=== PATIENT | female | born 1980 | race Caucasian/White ===

== ENCOUNTER 2017-09-16 12:05 | Outpatient (CLI) | payer OTHER ==
--- NOTE | 2017-09-16 13:27 | RAD ---
TWO VIEWS CHEST: Date: 09-16-17 Comparison: None. History: Cough. FINDINGS: There are post-surgical clips in the upper abdomen. No pneumothorax, pleural fluid, lobar consolidati on, or alveolar edema. Mild increased density is seen in the medial lung base on the left on the frontal view, with no corre late on the lateral exam, likely on the basis of volume loss. IMPRESSION: Mild increased density in the medial left base noted with no focal consolidation or alveolar edema. POS: [facility]
== END 2017-09-16 12:06 | disposition home or self-care (01) ==
LOC: RAD 12:05
PROVIDERS: ATTEND Family Medicine
DX: R05 Cough (principal); J68.1 Pulmonary edema due to chemicals, gases, fumes and vapors
CPT/HCPCS: 71046

== ENCOUNTER 2021-02-09 08:39 | Outpatient (CLI) | payer OTHER | END 2021-02-09 08:40 | disposition home or self-care (01) | LOC: BICMAMMO 08:39 | PROVIDERS: ATTEND Family Medicine | DX: Z12.31 Encounter for screening mammogram for malignant neoplasm of breast (principal) | CPT/HCPCS: 77063; 77067 ==

== ENCOUNTER 2022-05-14 09:12 | Outpatient (CLI) | payer BC | END 2022-05-14 09:13 | disposition home or self-care (01) | LOC: BICMAMMO 09:12 | PROVIDERS: ATTEND Family Medicine | DX: Z12.31 Encounter for screening mammogram for malignant neoplasm of breast (principal) | CPT/HCPCS: 77063; 77067 ==